=== PATIENT | male | born 1955 | race Caucasian/White ===

== ENCOUNTER → 2016-07-28 | Outpatient (CLI) | payer MEDICARE, OTHER ==
[~2016-07-28] MED LIST: AMLODIPINE PO; ATOR10TA OR; ERGO1CAP6 PO; LOSA100T22 OR; PANT40T PO; ROPI0.5T PO
[2016-07-28 14:17] LABS: Hemoglobin 11.2 g/dL (13.5-17.5); Mean Corpuscular Volume 87.9 fL (80.0-100.0); Mean Platelet Volume 6.4 fL (7.4-10.4); Platelet Count (auto) 352 10^3/uL (140-450); Red Cell Distribution Width 16.2 % (11.6-16.0); White Blood Cell 4.6 10^3/uL (4.4-10.8)
[2016-07-28 14:19] LABS: Metamyelocytes % 0; Myelocytes % 0; Promyelocytes % 0; Reactive Lymphocytes 0
[2016-07-28 17:23] LABS: Giant Platelets Few; Platelet Estimate Adequate; Stomatocytes Few
== END | disposition home or self-care (01) ==
LOC: LAB 14:05
PROVIDERS: ATTEND Internal Medicine Gastroenterology
DX: Q27.30 Arteriovenous malformation, site unspecified (principal)
CPT/HCPCS: 36415; 85007; 85027

== ENCOUNTER 2019-09-29 22:52 | Inpatient (IN) | payer MEDICARE ==
[~2019-09-29] VITALS: Ht 177.8 cm; Wt 108.7 kg
[~2019-09-29 22:52] MED LIST changes: -AMLODIPINE PO; -LOSA100T22 OR; -PANT40T PO; -ROPI0.5T PO
[2019-09-29] MEDS ORDERED: SODIUM CHLORIDE 0.9% 1,000 ML IV ONE (23:45)
[2019-09-29] MEDS ORDERED: metroNIDAZOLE 500 MG TAB PO ONE (23:45)
[2019-09-30 01:07] LABS: Basophils # (auto) 0.1 10 ^3/uL (0-0.2); Basophils % (auto) 0.8 % (0.0-2.0); Eosinophils # (auto) 0.1 10 ^3/uL (0-0.8); Lymphocytes # (auto) 1.2 10 ^3/uL (0.4-5.4); Monocytes # (auto) 0.5 10 ^3/uL (0-1.3)
[2019-09-30 01:09] LABS: Hematocrit 30.4 % (41.0-53.0); Hemoglobin 10.4 g/dL (13.5-17.5); Lymphocytes % (auto) 16.5 % (10.0-50.0); Mean Corpuscular Hemoglobin 35.8 pg (28.0-32.0); Mean Corpuscular Hgb Conc. 34.4 g/dL (32.0-36.0); Mean Corpuscular Volume 104.1 fL (80.0-100.0); Neutrophils # (auto) 5.4 10 ^3/uL (1.6-8.6); Neutrophils % (auto) 74.7 % (37.0-80.0); Platelet Count (auto) 180 10^3/uL (140-450); Red Blood Cells 2.92 10^6/uL (4.5-5.90); Red Cell Distribution Width 16.5 % (11.8-14.3); White Blood Cell 7.2 10^3/uL (4.4-10.8)
[2019-09-30 01:27] LABS: Albumin 1.7 g/dL (3.4-5.0); Calcium 7.6 mg/dL (8.5-10.1); Potassium 3.1 mmol/L (3.5-5.1)
[2019-09-30 01:30] LABS: Total Protein 5.4 g/dL (6.4-8.2)
[2019-09-30 01:59] LABS: Urine Bacteria NONE SEEN /hpf (None Seen); Urine Blood 3+ /uL (Negative); Urine Budding Yeast OCCASIONAL /hpf (None Seen); Urine Hyaline Cast FEW /lpf (0 - 2); Urine Specific Gravity 1.019 (1.001-1.035); Urine WBC 198 /hpf (0 - 3); Urine WBC Clumps PRESENT /hpf (None Seen)
[2019-09-30] MEDS ORDERED: ACETAMINOPHEN 325 MG TAB PO PRN (03:45)
[2019-09-30] MEDS ORDERED: ONDANSETRON HCL 4 MG/2 ML VIAL IV PRN (03:45)
[2019-09-30] MEDS ORDERED: DEXTROSE (50%) 50ML SYRG IV PRN (03:45)
[2019-09-30] MEDS ORDERED: HYDROcodone-ACET 5/325MG TAB PO PRN (03:45)
[2019-09-30] MEDS: InsuLIN REG 1unit/0.01ml Soln (100units/ml) SC SCH ×6 (04:00→23:58)
[2019-09-30] MEDS: SODIUM CHLORIDE 0.9% 1,000 ML IV SCH ×2 (04:17→13:42)
[2019-09-30] MEDS: ACCU-CHEK COMFORT CURVE STRIP VI SCH ×6 (04:17→23:57)
[2019-09-30] MEDS ORDERED: POTASSIUM CHL 20 Meq TABLET PO ONE (05:15)
[2019-09-30 05:24] VITALS: BP 120/61
[2019-09-30 05:28] VITALS: BP 120/61
[2019-09-30] MEDS: MORPHINE SULFATE 4 MG/ML SYR/VIAL IV PRN ×3 (05:28→18:52)
[2019-09-30] MEDS ORDERED: BISA10SU45 RE (06:21)
[2019-09-30] MEDS ORDERED: RANO500T2 PO (06:21)
[2019-09-30] MEDS ORDERED: MOMLQ PO (06:21)
[2019-09-30] MEDS ORDERED: METF-372 PO (06:21)
[2019-09-30] MEDS ORDERED: ONDA-144 PO (06:21)
[2019-09-30] MEDS ORDERED: ASP81EC PO (06:21)
[2019-09-30] MEDS ORDERED: NITR0.4S29 SL (06:21)
[2019-09-30] MEDS ORDERED: FLEETMIN PR (06:21)
[2019-09-30] MEDS ORDERED: LEV50T PO (06:21)
[2019-09-30] MEDS ORDERED: HYDR-4833 PO (06:21)
[2019-09-30] MEDS ORDERED: MULTTAB61 PO (06:21)
[2019-09-30] MEDS ORDERED: MAGN400C3 PO (06:21)
[2019-09-30] MEDS ORDERED: ACET-3 PO (06:21)
[2019-09-30] MEDS ORDERED: FAM20T PO (06:21)
[2019-09-30] MEDS ORDERED: AMINLIQ64 OR (06:21)
[2019-09-30] MEDS ORDERED: SACU1TAB PO (06:21)
[2019-09-30] MEDS ORDERED: INSDRIP SC (06:27)
[2019-09-30] MEDS: LEVOTHYROXINE SODIUM 50 MCG TAB PO SCH (08:48)
[2019-09-30] MEDS: ASPirin 81 mg TAB PO SCH (08:49)
[2019-09-30 09:00] VITALS: BP 86/57
[2019-09-30] MEDS ORDERED: POTASSIUM CHLORIDE 40 MEQ, LIDOCAINE 1% (LOCAL ANESTH.) 4 ML in SODIUM CHL 0.9% 100 ML IV ONE (09:30)
[2019-09-30] MEDS: MAGNESIUM SULFATE 1GM/100ML 100 ML IV SCH ×3 (09:59→15:21)
[2019-09-30] MEDS ORDERED: FAMOTIDINE 20 MG TAB PO SCH (10:00)
[2019-09-30] MEDS: ATORVASTATIN 20 MG TAB PO SCH (10:00)
[2019-09-30] MEDS ORDERED: PROMETHAZINE HCL 25 MG/ML 1ML IM ONE (10:30)
[2019-09-30 10:31] LABS: Basophils # (auto) 0.1 10 ^3/uL (0-0.2); Basophils % (auto) 1.1 % (0.0-2.0); Eosinophils # (auto) 0.1 10 ^3/uL (0-0.8); Eosinophils % (auto) 1.1 % (0.0-7.0); Hematocrit 32.1 % (41.0-53.0); Hemoglobin 10.3 g/dL (13.5-17.5); Lymphocytes # (auto) 1.1 10 ^3/uL (0.4-5.4); Lymphocytes % (auto) 14.2 % (10.0-50.0); Mean Corpuscular Hemoglobin 34.7 pg (28.0-32.0); Mean Corpuscular Hgb Conc. 32.2 g/dL (32.0-36.0); Mean Corpuscular Volume 107.9 fL (80.0-100.0); Monocytes # (auto) 0.6 10 ^3/uL (0-1.3); Monocytes % (auto) 7.2 % (0.0-12.0); Neutrophils # (auto) 6.1 10 ^3/uL (1.6-8.6); Neutrophils % (auto) 76.4 % (37.0-80.0); Platelet Count (auto) 187 10^3/uL (140-450); Red Blood Cells 2.98 10^6/uL (4.5-5.90); Red Cell Distribution Width 17.2 % (11.8-14.3); White Blood Cell 7.9 10^3/uL (4.4-10.8)
[2019-09-30] MEDS ORDERED: PROMETHAZINE HCL 25 MG/ML 1ML IV ONE (10:45)
[2019-09-30 10:59] LABS: Calcium 7.2 mg/dL (8.5-10.1)
[2019-09-30 13:00] VITALS: BP 119/76
[2019-09-30] MEDS: metroNIDAZOLE 500MG/100ML 100 ML IV SCH ×2 (14:19→21:46)
[2019-09-30] MEDS: levoFLOXacin 500MG 100 ML IV SCH (16:20)
[2019-09-30 17:00] VITALS: BP 127/69
[2019-09-30] MEDS ORDERED: MAGNESIUM SULFATE 1GM/100ML 100 ML IV SCH (17:00)
[2019-09-30] MEDS: PROMETHAZINE HCL 12.5 MG RECT SUPP PR PRN (17:30)
[2019-09-30] MEDS: METOCLOPRAMIDE HCL 5MG/ml INJ 2ml VIAL IV SCH ×2 (17:35→23:57)
[2019-09-30] MEDS ORDERED: POTASSIUM CHLORIDE 20 MEQ, LIDOCAINE 1% (LOCAL ANESTH.) 2 ML in SODIUM CHL 0.9% 100 ML IV ONE (18:00)
[2019-09-30] MEDS ORDERED: FAMOTIDINE (10MG/ML) 2ML VL IV ONE (18:15)
[2019-09-30] MEDS: ONDANSETRON HCL 4 MG/2 ML VIAL IV PRN (20:08)
[2019-09-30] MEDS: SOD CHL 0.9%/ KCL 40MEQ 1,000 ML IV SCH (20:12)
[2019-09-30 20:58] VITALS: BP 106/72
[2019-10-01] MEDS: SOD CHL 0.9%/ KCL 40MEQ 1,000 ML IV SCH ×3 (00:15→20:33)
[2019-10-01 04:00] VITALS: BP 87/51
[2019-10-01] MEDS: InsuLIN REG 1unit/0.01ml Soln (100units/ml) SC SCH ×5 (04:00→20:00)
[2019-10-01] MEDS: ACCU-CHEK COMFORT CURVE STRIP VI SCH ×5 (04:00→20:00)
[2019-10-01] MEDS: MORPHINE SULFATE 4 MG/ML SYR/VIAL IV PRN ×4 (04:08→22:15)
[2019-10-01] MEDS: METOCLOPRAMIDE HCL 5MG/ml INJ 2ml VIAL IV SCH ×4 (06:04→22:14)
[2019-10-01] MEDS: metroNIDAZOLE 500MG/100ML 100 ML IV SCH ×3 (06:05→22:14)
[2019-10-01 06:55] LABS: Calcium 7.5 mg/dL (8.5-10.1); Potassium 3.9 mmol/L (3.5-5.1)
[2019-10-01 06:59] LABS: BUN/Creatinine Ratio 24.4; Magnesium 1.9 mg/dL (1.6-2.6)
[2019-10-01] MEDS: LEVOTHYROXINE SODIUM 50 MCG TAB PO SCH (08:00)
[2019-10-01 09:00] VITALS: BP 117/73
[2019-10-01] MEDS: levoFLOXacin 500MG 100 ML IV SCH (09:49)
[2019-10-01] MEDS: ATORVASTATIN 20 MG TAB PO SCH (09:50)
[2019-10-01] MEDS: ASPirin 81 mg TAB PO SCH (09:50)
[2019-10-01] MEDS: MAGNESIUM SULFATE 1GM/100ML 100 ML IV SCH ×4 (11:00→13:35)
[2019-10-01 13:00] VITALS: BP 96/57
[2019-10-01 17:00] VITALS: BP 100/58
[2019-10-01] MEDS: ONDANSETRON HCL 4 MG/2 ML VIAL IV PRN (19:01)
[2019-10-01 20:00] VITALS: BP 118/73
[2019-10-01] MEDS: PROMETHAZINE HCL 12.5 MG RECT SUPP PR PRN (20:32)
[2019-10-01 23:46] VITALS: BP 127/82
[2019-10-02] MEDS: ONDANSETRON HCL 4 MG/2 ML VIAL IV PRN ×2 (00:52→09:16)
[2019-10-02] MEDS: PROMETHAZINE HCL 12.5 MG RECT SUPP PR PRN (03:28)
[2019-10-02 04:00] VITALS: BP 112/80
[2019-10-02] MEDS: ACCU-CHEK COMFORT CURVE STRIP VI SCH ×5 (04:00→16:52)
[2019-10-02] MEDS: InsuLIN REG 1unit/0.01ml Soln (100units/ml) SC SCH ×5 (04:00→16:00)
[2019-10-02] MEDS: METOCLOPRAMIDE HCL 5MG/ml INJ 2ml VIAL IV SCH ×3 (05:40→18:00)
[2019-10-02] MEDS: metroNIDAZOLE 500MG/100ML 100 ML IV SCH ×2 (05:40→14:28)
[2019-10-02] MEDS: SOD CHL 0.9%/ KCL 40MEQ 1,000 ML IV SCH (06:43)
[2019-10-02 06:46] LABS: Potassium 4.3 mmol/L (3.5-5.1)
[2019-10-02 06:51] LABS: BUN/Creatinine Ratio 24.1; Calcium 8.3 mg/dL (8.5-10.1); Magnesium 1.7 mg/dL (1.6-2.6)
[2019-10-02] MEDS: MORPHINE SULFATE 4 MG/ML SYR/VIAL IV PRN ×2 (06:57→12:37)
[2019-10-02 07:00] LABS: Albumin 1.8 g/dL (3.4-5.0); Bilirubin, Total 1.1 mg/dL (0.2-1.0); Total Protein 5.4 g/dL (6.4-8.2)
[2019-10-02] MEDS: LEVOTHYROXINE SODIUM 50 MCG TAB PO SCH (08:00)
[2019-10-02 08:02] VITALS: BP 102/90
[2019-10-02] MEDS: ASPirin 81 mg TAB PO SCH (09:16)
[2019-10-02] MEDS: levoFLOXacin 500MG 100 ML IV SCH (09:16)
[2019-10-02] MEDS: ATORVASTATIN 20 MG TAB PO SCH (09:17)
[2019-10-02 09:18] VITALS: BP 102/90
[2019-10-02] MEDS ORDERED: PROMETHAZINE HCL 25 MG RECT SUPP PR PRN (10:45)
[2019-10-02] MEDS ORDERED: PROCHLORPERAZINE EDISYLATE 5 MG/ML 2ML VIAL IV PRN (11:30)
[2019-10-02 12:20] VITALS: BP 101/60
[2019-10-02 13:29] VITALS: BP 101/60
[2019-10-02] MEDS ORDERED: SODIUM CHLORIDE 0.9% 1,000 ML IV ONE (17:00)
[2019-10-02 17:03] VITALS: BP 86/41
[2019-10-02] MEDS ORDERED: SOD CHL 0.9%/ KCL 40MEQ 1,000 ML IV SCH (18:00)
[2019-10-02] MEDS ORDERED: NOREPINEPHRINE 8 MG/250ML KIT 250 ML IV SCH ×2 (18:01→19:00)
[2019-10-03] MEDS ORDERED: cefTRIAXone 1GM/50ML D5W 50 ML IV SCH (10:00)
== END 2019-10-02 18:59 | disposition expired | DRG 372 ==
LOC: EDUNIT# 22:52 → ER 22:52 → EDBD 22:52 → TELE 22:53 → TELE-EAST 09-30 04:47 → UNDODISIN 10-02 18:59
PROVIDERS: ADMIT Hospitalist; ATTEND Internal Medicine
DX: A04.72 Enterocolitis due to Clostridium difficile, not specified as recurrent (principal); E87.1 Hypo-osmolality and hyponatremia; R18.8 Other ascites; N39.0 Urinary tract infection, site not specified; C25.9 Malignant neoplasm of pancreas, unspecified; E44.1 Mild protein-calorie malnutrition; I95.9 Hypotension, unspecified; K57.90 Diverticulosis of intestine, part unspecified, without perforation or abscess without bleeding; E11.65 Type 2 diabetes mellitus with hyperglycemia; E83.42 Hypomagnesemia; I10 Essential (primary) hypertension; E87.6 Hypokalemia; D49.0 Neoplasm of unspecified behavior of digestive system; I25.10 Atherosclerotic heart disease of native coronary artery without angina pectoris; I46.9 Cardiac arrest, cause unspecified; Z92.21 Personal history of antineoplastic chemotherapy; Z95.5 Presence of coronary angioplasty implant and graft; Z90.49 Acquired absence of other specified parts of digestive tract; Z90.89 Acquired absence of other organs; Z68.34 Body mass index [BMI] 34.0-34.9, adult; E03.9 Hypothyroidism, unspecified; E11.51 Type 2 diabetes mellitus with diabetic peripheral angiopathy without gangrene; E78.5 Hyperlipidemia, unspecified; R57.1 Hypovolemic shock
CPT/HCPCS: 36415; 74176; 80048; 80053; 81001; 82150; 82962; 83036; 83690; 83735; 84443; 85025; 85048; 86301; 87081; 87493; 93005; 96360; G0378; J1956; J2001; J2405; J3490